=== PATIENT | male | born 1960 | race Caucasian/White ===

== ENCOUNTER 2016-11-14 13:04 | Day surgery (SDC) | payer OTHER ==
[~2016-11-14] VITALS: Ht 185.4 cm; Wt 156.4 kg
[~2016-11-14 13:04] MED LIST: ACET1TAB12 PO; ASPI325T32 PO; ATRV10T PO; Acetaminophen IV 1,000 mg IV ONE; CeFAZolin Inj 3 GM in IV Premix IV ONE; DILT240C51 PO; LOSA50TA37 PO; Lactated Ringer's 1,000 ML IV SCH; MELO7.5O PO; OMEP20CA11 PO; ONDA-53 PO; TAMS0.4C98 PO
[2016-11-14 14:11] VITALS: BP 133/78; PULSE 79; RESP 16; O2SAT 96
--- NOTE | 2016-11-14 14:20 | DRSVH ---
PROCEDURE: X-RAY KUB ([id number]) INDICATIONS: PATIENT TO HAVE SURGERY; FOLLOW UP OF LEFT KIDNEY STONE TECHNIQUE: One view of the abdomen acquired. COMPARISON: [facility], CR, XR KUB, 11/01/2016, 10:37. FINDINGS: Surgical changes and devices: None. Bowel: Bowel gas pattern is normal. Soft tissues: No suspicious abdominal calcifications. Visualized solid organ contours appear normal in size. Pelvic phleboliths. Bones: No suspicious bony lesions. IMPRESSION: Right hemipelvic phleboliths and no definite left ureteral stone seen. 2 small renal calcifications. Dictated by: Matt Bryant RRA Interpreted: Analia Mcdonnell MD on 11/14/2016 at 14:19 Transcribed by: LJ on 11/14/2016 at 14:20 Approved by: Analia Mcdonnell MD, PhD on 11/14/2016 at 16:35
== END 2016-11-14 23:59 | disposition home or self-care (01) ==
LOC: SAS 13:04
PROVIDERS: ATTEND Specialist
DX: N20.0 Calculus of kidney (principal); Z53.9 Procedure and treatment not carried out, unspecified reason

== ENCOUNTER 2016-12-01 11:26 | Day surgery (SDC) | payer OTHER ==
[2016-12-01] VITALS (9 sets, daily range): BP systolic 107–139; BP diastolic 45–78; PULSE 49–77; RESP 12–22; O2SAT 90–97
[~2016-12-01] VITALS: Ht 185.4 cm; Wt 155.0 kg
[~2016-12-01 11:26] MED LIST changes: +Acetaminophen IV 1,000 MG in IV Premix 1 EACH IV ONE; -Acetaminophen IV 1,000 mg IV ONE; -CeFAZolin Inj 3 GM in IV Premix IV ONE; -ONDA-53 PO
[2016-12-01] MEDS ORDERED: fentaNYL-PF 50 mCg/mL 2 mL Inj ONE ×2 (11:27)
[2016-12-01] MEDS ORDERED: Ondansetron 2 mg/mL 2 mL Inj ONE (11:27)
[2016-12-01] MEDS ORDERED: Lactated Ringer's 1,000 ML IV ONE (12:32)
[2016-12-01] MEDS ORDERED: Lactated Ringer's 1,000 ML IV SCH (13:34)
[2016-12-01] MEDS ORDERED: Lactated Ringer's 500 ML IV PRN (13:34)
[2016-12-01] MEDS ORDERED: Labetalol 5 mg/mL 4 mL Inj IV PRN (13:35)
[2016-12-01] MEDS ORDERED: EPHEDrine Sulfate 50 mg/mL Inj IVPUSH PRN (13:35)
[2016-12-01] MEDS ORDERED: Dexamethasone 4 mg/mL Inj IVPUSH PRN (13:35)
[2016-12-01] MEDS ORDERED: Ondansetron 2 mg/mL 2 mL Inj IVPUSH PRN (13:35)
[2016-12-01] MEDS ORDERED: Phenylephrine 10,000 mCg/mL Inj IVPUSH PRN (13:35)
[2016-12-01] MEDS ORDERED: HYDROmorphone 1 mg/mL Inj IVPUSH PRN (13:35)
[2016-12-01] MEDS ORDERED: Atropine 0.4 mg/mL Inj IVPUSH PRN (13:35)
[2016-12-01] MEDS ORDERED: hydrALAZINE 20 mg/mL Inj IVPUSH PRN (13:35)
[2016-12-01] MEDS ORDERED: fentaNYL-PF 50 mCg/mL 2 mL Inj IVPUSH PRN (13:35)
--- NOTE | 2016-12-01 13:46 | PCM.HPANE ---
Patient Data Surgeon Admitting Provider: Attending Provider:Monika Phillips MD Primary Care Physician:Santiago Dewitt PA-C Other Provider:Rubio Sun Anesthesia Reason for Visit Right Kidney Stone Ht/WT & BMI Height (Feet): 6 Height (Inches): 1 Weight (Kilograms): 155 Body Mass Index 45.00 Allergies Coded Allergies: No Known Allergies (Verified Allergy, Unknown, 05/27/15) Uncoded Allergies: BEE STINGS (Allergy, Unknown, anaphylaxis, 06/04/15) Past Anesthesia History Anesthesia History: Denies:: Abnormal Airway, Anesthesia Reactions, Difficult Intubation, Fam Anesthesia Reaction, Fam Malignant Hypertherm, Malignant Hyperthermia Diabetes History Hx Diabetes?: No MRSA MRSA: No Medications Blood Thinner: Aspirin Home Meds Incl Beta Eufemia: No Reported Medications Aspirin 325 Mg [id number] Mg PO DAILY #1 BOTTLE 11/11/16 Meloxicam 7.5 Mg/5 Ml Oral.susp15 Mg PO DAILY 30 Days 11/11/16 Tamsulosin (Flomax)0.4 Mg Capsule0.4 Mg PO DAILY Ref 0 11/11/16 Diltiazem ER (Cartia XT)240 Mg Cap.er.12p031 Mg PO DAILY 11/11/16 Omeprazole 20 Mg Capsule.dr20 Mg PO Q2DAY Ref 0 11/11/16 Atorvastatin (Lipitor)10 Mg Tab10 Mg PO DAILY Ref 0 11/11/16 Acetaminophen/Codeine 300-30mg (Tylenol/Codeine #3)1 Each Tablet1 Tablet PO Q3H PRN Pain Ref 0 11/11/16 Losartan Potassium 50 Mg Rrqsnt87 Mg PO DAILY 11/11/16 History History of ENT Problems?: No HEENT History: Denies:: Abnormal Airway Cataracts Difficult Intubation Dysphagia Hearing Problem Sinus Problem TMJ Hx of Heart Problems?: Yes Cardiovascular History: Positive for:: Hypertension Denies:: AICD Abdominal Aortic Aneurism Atrial Fibrillation Cardiac Surgery Chest Pain Congestive Heart Failure Edema Heart Murmur Irregular Heartbeat Pacemaker Rheumatic Fever Thrombophlebitis Valvular Heart Disease Hx of Respiratory Problem?: Yes Respiratory History: Positive for:: Use of C-PAP Machine Denies:: Asthma COPD Cough Emphysema Hemoptysis Oxygen Administration Pneumonia Pulmonary Embolism Tuberculosis Hx Neurologic Problems?: No Neurological History: Denies:: CVA Dementia Dizziness Headaches Multiple Sclerosis Parkinson's Disease Seizures Hx of GI Problems?: Yes Gastrointestinal History: Positive for:: Gastroesphageal Reflux Heartburn Denies:: Cirrhosis Diverticulitis Gastrointestinal Bleeding Hiatal Hernia Rectal Bleeding Hx of Problems?: Yes Genitourinary History: Positive for:: Kidney Stones (right side current admission problem) Denies:: Urinary Tract Infection Other Pertinent History: recently spontaneously passed left sided stone Male Hx: Denies:: Prostate Problems Scrotal Mass Testicular Surgery Skin History: Denies:: History Skin Disorders? 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) Denies:: Systemic Lupus Hx of Psycho/Social Problems?: No Psycho Social History: Denies:: Anxiety Hx Depression Hx Surgeries?: Yes (TKR, tonsil, vas, cysto, ESWL) Hx Any Other Health Problems?: Yes Other History: Denies:: Cancer Thyroid Disease History Blood Transfusions: Denies:: Blood Transfusions Hx Diabetes: No Hx Alcohol Use: YesHx Substance Use: No Smoking Status: Never Smoker Have You Smoked inLast 12 mo: No Stop/Bang S-Snoring: Do You Snore Loudly: Yes T-Tired: feel tired, fatigued: Yes O-Obsered: Observed not breath: Yes P-Blood Pressure: treated: Yes B- Body Mass Index > 35 kg/m2: Yes A- Age over 50: Yes N- Neck Large Circumference: Yes G- Gender Male: Yes LIZ Total Score: 8 Risk Assessment Category Category 1A: Patient has history of documented sleep apnea, and HAS NOT received any narcotic, sedative or anesthesia administration during this stay. Category 1B: Patient has history of documented sleep apnea, and HAS received any narcotic , sedative or anesthesia administration during this stay Category 2: Patient has SUSPECTED Obstructive Sleep Apnea, and HAS received any narcotic , sedative or anesthesia administration during this stay. Category 3: Patient has SUSPECTED Obstructive Sleep Apnea and HAS NOT received narcotic, sedative or anesthesia administration during this stay. Category 4: Outpatient in Procedural Areas with known sleep apnea or who screen positive for High Risk via the STOP/BANG questionnaire. Exam Exam Vital Signs Vital Signs Date Time Temp Pulse Resp B/P Pulse Ox O2 Delivery O2 Flow Rate FiO2 12/01/16 12:24 36.6 70 16 120/62 96 Room Air General Appearance: Alert, Oriented X3, Cooperative HEENT/AIRWAY: MP 2, Neck Movement (rodriguez, Thick, 75% expected ROM), Mouth Opening (moderate) Lungs: Clear to Auscultation Heart: Exam Unremarkable Meds/Labs/Diagnostics Admission Meds Current Medications Acetaminophen/ Premix (Tylenol IV/IV Premix) 100 ml @ 400 mls/hr PREOP ONCE IV Last administered on 12/01/16 12:56; Start 12/01/16 at 06:00; Stop at 06:14; Status DC Acetaminophen 1000 mg 1,000 mg STK-MED ONCE IV Last administered on 12/01/16 12:57; Start 12/01/16 at 12:12; Stop 12/01/16 at 12:13; Status DC Lactated Ringer's (Lr) 1,000 ml @ ud STK-MED ONCE IV Last administered on 12/01 12:32; Start 12/01/16 at 12:32; Stop 12/01/16 at 12:33; Status DC Plan Impression Patient chart reviewed, patient interviewed and anesthestic plan with risks, benefits, and alternatives discussed, and informed consent obtained. NPO Status: confirmed before mn ASA Physical Status: ASA3 Severe Disease Anesthetic Plan: GA Bene/Risks/Altern/Consents: Yes HP Complete Prior to Induction: Yes Maycol Nj MD Dec 01, 2016 13:46
[2016-12-01] MEDS ORDERED: Furosemide 10 mg/mL 2 mL Inj IV ONE (14:05)
--- NOTE | 2016-12-01 14:37 | DRSVH ---
PROCEDURE: X-RAY KUB ([id number]) INDICATIONS: RIGHT KIDNEY STONE TECHNIQUE: One view of the abdomen acquired. COMPARISON: [facility], CR, XR KUB, 11/16/2016, 13:06. [facility], CT, CT [facility], 11/22/2016, 13:04. FINDINGS: Surgical changes and devices: None. Bowel: Bowel gas pattern is normal. Soft tissues: Numerous small right renal stones again seen similar to prior CT scan the largest measu ring roughly 4 mm. Multiple left renal calcifications redemonstrated similar to prior CT scan the la rgest measuring roughly 6 mm. No.visualized calcifications along the course of the ureter and right hemipelvic calcification again noted likely a phlebolith. Bones: No suspicious bony lesions. IMPRESSION: Multiple bilateral renal calcifications as above similar to prior CT KUB. Dictated by: Matt Bryant RRA Interpreted: Analia Mcdonnell MD on 12/01/2016 at 14:34 Transcribed by: LJ on 12/01/2016 at 14:36 Approved by: Analia Mcdonnell MD, PhD on 12/01/2016 at 16:55
--- NOTE | 2016-12-01 14:50 | PCM.ANEP1 ---
Post Anesthesia Phase 1 PACU Phase 1 Assessment Vital Signs Vital Signs Date Time Temp Pulse Resp B/P Pulse Ox O2 Delivery O2 Flow Rate FiO2 12/01/16 14:30 36.0 49 20 107/45 95 Nasal Cannula 3 12/01/16 14:25 50 17 131/62 94 Nasal Cannula 3 12/01/16 14:20 53 18 131/67 94 Nasal Cannula 3 12/01/16 14:15 52 16 130/59 93 Nasal Cannula 3 12/01/16 14:10 36.6 62 12 139/65 90 Room Air 12/01/16 12:24 36.6 70 16 120/62 96 Room Air Anesthetic Administered: GA Level of Alertness: Awake, talking TRAORE's with Equal Strength: Yes Pain: No Nausea or Vomiting: No Oxygen Delivery: Room Air Lungs: Normal Air Movement Maycol Nj MD Dec 01, 2016 14:50
--- NOTE | 2016-12-01 14:56 | PCM.ANEP2 ---
Post Anesthesia Evaluation ASA/CMS Post Anesthesia VS in Patient's Normal Range?: Yes Resp Stable; Airway Patent?: Yes CV Function & Hydration Stable: Yes Mental Status Recovered?: Yes Pain control Satisfactory?: Yes N/V Control Satisfactory?: Yes Maycol Nj MD Dec 01, 2016 14:56
--- NOTE | 2016-12-02 01:25 | OP ---
[address] [address] OPERATIVE REPORT PATIENT: RAD CORREA : 1960 MR#: [id number] ADMIT: 12/01/2016 JOB ID: [id number] DATE OF SURGERY: PREOPERATIVE DIAGNOSIS(ES): 1. Multiple right calcium nephrolithiasis (recurrent). 2. History of right renal colic. POSTOPERATIVE DIAGNOSIS(ES): 1. Multiple right calcium nephrolithiasis (recurrent). 2. History of right renal colic. OPERATION PERFORMED: Right extracorporeal shock wave lithotripsy (maximal power level 5.0 x 2500 shocks). SURGEON: Monika Phillips MD ANESTHESIOLOGIST: Maycol Nj MD ANESTHESIA: General. PROCEDURE SUMMARY: The patient was positioned supine on the lithotripsy gurney and the above-described stone was localized in the X, Y and Z plane. Lithotripsy was then commenced at minimal power level and gradually increased to maximum power level. The stone and its fragments were relocalized numerous times throughout the case using C-arm radiography. The procedure was then terminated. The patient was awakened, transferred to the gurney and transferred to the recovery area awake in stable condition. The patient tolerated the procedure well.
== END 2016-12-01 23:59 | disposition home or self-care (01) ==
LOC: SAS 11:26
PROVIDERS: ATTEND Specialist
DX: N20.0 Calculus of kidney (principal); N23 Unspecified renal colic; I10 Essential (primary) hypertension; G47.33 Obstructive sleep apnea (adult) (pediatric); I49.9 Cardiac arrhythmia, unspecified
CPT/HCPCS: 50590; 74000; J0131; J1940; J2250; J2405; J3010; J7120